=== PATIENT | male | born 1985 | race Two or more races ===

== ENCOUNTER 2024-11-03 20:31 | Inpatient (IN) | payer MEDICAID, OTHER, SELFPAY ==
[2024-11-03 21:50] LABS: PLATELET COUNT, AUTOMATED 242 10^3/uL (150-450)
[2024-11-03 22:21] LABS: ETHYL ALCOHOL (ETHANOL) < 0.003 % (0.000-0.010)
[2024-11-03 22:23] LABS: SALICYLATE LEVEL < 3.0 MG/DL (<30)
[2024-11-03 22:24] LABS: ALT/SGPT 39 U/L (7.0-40); AST/SGOT 54 U/L (<34); CALCIUM LEVEL 9.1 MG/DL (8.5-10.1); CARBON DIOXIDE LEVEL 25 MMOL/L (20-31); CHLORIDE LEVEL 105 MMOL/L (98-107); CREATININE FOR GFR 1.00 MG/DL (0.70-1.30); GLOMERULAR FILTRATION RATE > 90.0 (>60); POTASSIUM SERUM 3.9 MMOL/L (3.5-5.1); SODIUM LEVEL 139 MMOL/L (136-145)
[2024-11-04] MEDS: OLANZapine ORAL DISINTEGRATING TAB 5MG PO ONE (12:30)
[2024-11-04 13:57] LABS: BARBITURATES URINE NEGATIVE (NEGATIVE); BENZODIAZEPINES URINE NEGATIVE (NEGATIVE); COCAINE METABOLITE URINE NEGATIVE (NEGATIVE); METHADONE URINE NEGATIVE (NEGATIVE); OPIATES URINE NEGATIVE (NEGATIVE); PHENCYCLIDINE URINE NEGATIVE (NEGATIVE)
[2024-11-04 14:01] LABS: AMPHETAMINES LEVEL URINE POSITIVE (NEGATIVE); CANNABINOIDS URINE POSITIVE (NEGATIVE)
[2024-11-04] MEDS ORDERED: traZODone 50 MG TAB PO PRN (14:25)
[2024-11-04] MEDS ORDERED: ACETAMINOPHEN 325 MG TAB PO PRN (14:25)
[2024-11-04] MEDS ORDERED: MOM 30 ML SUSPENSION UDC PO PRN (14:25)
[2024-11-04] MEDS ORDERED: HOME MED LIST COMPLETE! XX SCH (16:15)
[2024-11-04 16:40] VITALS: BP 147/91; TEMP 97.3; O2SAT 100
[2024-11-04] MEDS: CHLORHEXIDINE GLUCONATE 0.12% 15 ML UDC SSP SCH (21:41)
[2024-11-04] MEDS: IBUPROFEN 400 MG TAB PO PRN (21:54)
[2024-11-05] MEDS: MUPIROCIN 2% OINT 22 GM TUBE TOP SCH (10:06)
[2024-11-05] MEDS: CEPACOL LOZENGE PO PRN (14:02)
[2024-11-05 15:20] VITALS: BP 133/80; TEMP 97.6; O2SAT 100
[2024-11-08] MEDS: OLANZapine 5 MG TAB PO SCH (21:00)
[2024-11-10] MEDS: CLOTRIMAZOLE 1% TOPICAL CREAM 30 GM TOP SCH (23:21)
[2024-11-11 12:30] VITALS: BP 137/76; TEMP 98.1; O2SAT 99
[2024-11-11 13:56] LABS: CK-MB VALUE MASS < 1.0 NG/ML (<3.6)
[2024-11-11 14:06] LABS: CPK CREATINE PHOSPHOKINASE 78 U/L (46-171)
[2024-11-11 15:20] VITALS: BP 110/65; TEMP 97.4; O2SAT 98
[2024-11-12 07:01] VITALS: BP 138/92; TEMP 97.2; O2SAT 100
[2024-11-12] MEDS: MAALOX 30 ML SUSP *UDC PO PRN (09:30)
[2024-11-12 15:57] VITALS: BP 125/74; TEMP 98.1; O2SAT 99
[2024-11-13 13:29] VITALS: BP 125/74; TEMP 98.1; O2SAT 99
[2024-11-13 16:26] VITALS: BP 139/75; TEMP 97.3; O2SAT 99
[2024-11-14 15:25] VITALS: BP 140/88; TEMP 98; O2SAT 100
[2024-11-15 18:41] VITALS: BP 126/67; TEMP 98.8; O2SAT 98
[2024-11-16 06:24] VITALS: BP 141/86; TEMP 97.4; O2SAT 99
[2024-11-16] MEDS ORDERED: buPROPion **XL** 150 MG TABLET PO SCH (09:00)
[2024-11-16 15:04] VITALS: BP 136/90; TEMP 97.5; O2SAT 96
[2024-11-17 07:02] VITALS: BP 148/92; TEMP 97.7; O2SAT 98
[2024-11-17] MEDS: OLANZapine 5 MG TAB PO PRN (12:38)
[2024-11-17 15:04] VITALS: BP 135/78; TEMP 97.6; O2SAT 98
[2024-11-17 15:19] LABS: AMPHETAMINES LEVEL URINE NEGATIVE (NEGATIVE); BARBITURATES URINE NEGATIVE (NEGATIVE); BENZODIAZEPINES URINE NEGATIVE (NEGATIVE); COCAINE METABOLITE URINE NEGATIVE (NEGATIVE); METHADONE URINE NEGATIVE (NEGATIVE)
[2024-11-17 15:20] LABS: CANNABINOIDS URINE NEGATIVE (NEGATIVE); OPIATES URINE NEGATIVE (NEGATIVE); PHENCYCLIDINE URINE NEGATIVE (NEGATIVE)
[2024-11-18 14:00] VITALS: BP 136/66; TEMP 98; O2SAT 100
[2024-11-19 14:30] VITALS: BP 131/78; TEMP 98.1; O2SAT 99
[2024-11-20 16:26] VITALS: BP 134/76; TEMP 98.5; O2SAT 100
[2024-11-21 15:16] VITALS: BP 147/73; TEMP 97.5; O2SAT 95
[2024-11-22 15:25] VITALS: BP 135/74; TEMP 98; O2SAT 99
[2024-11-23 06:31] VITALS: BP 153/74; TEMP 97.9; O2SAT 99
[2024-11-23 06:49] VITALS: BP 132/80; TEMP 97.6; O2SAT 99
[2024-11-23 16:10] VITALS: BP 134/74; TEMP 98.3; O2SAT 100
[2024-11-24 15:38] VITALS: BP 133/73; TEMP 98.9; O2SAT 98
[2024-11-25 15:55] VITALS: BP 140/65; TEMP 98.6; O2SAT 98
[2024-11-26 07:04] VITALS: BP 137/87; TEMP 97.8; O2SAT 98
[2024-11-26 14:52] VITALS: BP 126/75; TEMP 97.4; O2SAT 100
[2024-11-27] MEDS ORDERED: OLAN1TAB16 PO (08:45)
== END 2024-11-27 11:14 | disposition home or self-care (01) | DRG 776 ==
LOC: M ED 20:31 → M ED INP 11-04 14:25 → M PSY 11-04 16:44
PROVIDERS: ADMIT General Practice; ATTEND General Practice
DX: F15.250 Other stimulant dependence with stimulant-induced psychotic disorder with delusions (principal); F25.9 Schizoaffective disorder, unspecified; Z88.0 Allergy status to penicillin; F41.9 Anxiety disorder, unspecified; F60.2 Antisocial personality disorder